=== PATIENT | female | born 1995 | race Two or more races ===

== ENCOUNTER 2024-06-19 15:26 | Inpatient (IN) | payer OTHER ==
[~2024-06-19] VITALS: Ht 149.9 cm; Wt 60.8 kg
[2024-06-19] MEDS ORDERED: MAGNESIUM SULFATE IN WATER 4 GM/100 ML PIGGYBACK IV ONE (15:32)
[2024-06-19] MEDS ORDERED: AMPICILLIN SODIUM 2,000 MG VIAL ONE (15:32)
[2024-06-19] MEDS ORDERED: MAGNESIUM SULFATE IN WATER 0.04 GM/ML IV.SOLN IV ONE (15:32)
[2024-06-19] MEDS ORDERED: BETAMETHASONE ACETATE,SOD PHOS 30 MG/5 ML ML ONE (15:32)
[2024-06-19 15:46] VITALS: BP 121/82
[2024-06-19] MEDS ORDERED: BETAMETHASONE ACETATE,SOD PHOS 30 MG/5 ML ML IM STA (16:20)
[2024-06-19] MEDS ORDERED: AMPICILLIN SODIUM 2,000 MG VIAL IV ONE (16:30)
[2024-06-19] MEDS ORDERED: MAGNESIUM SULFATE IN WATER 500 ML IV SCH (16:30)
[2024-06-19] MEDS ORDERED: ACETAMINOPHEN 325 MG TABLET PO PRN (16:30)
[2024-06-19] MEDS ORDERED: RINGERS SOLUTION,LACTATED 1,000 ML IV SCH (16:30)
[2024-06-19] MEDS ORDERED: MAGNESIUM SULFATE IN WATER 100 ML IV SCH (16:30)
[2024-06-19 16:41] LABS: HEMATOCRIT 35.1 % (36.0-45.00); HEMOGLOBIN 12.1 g/dL (12.0-15.00); MEAN CELL VOLUME 90.3 fL (80.00-100.00); MEAN CORPUSCULAR HEMOGLOBIN 31.1 pg (27.00-32.0); MEAN CORPUSCULAR HGB CONC 34.4 g/dl (32.0-36.0); PLATELET COUNT 227 K/uL (150-450); RED BLOOD COUNT 3.89 M/uL (4.00-6.00); RED CELL DISTRIBUTION WIDTH 12.6 % (11.5-14.5); URINE APPEARANCE Cloudy; URINE BILIRRUBIN Negative (NEGATIVE); URINE BLOOD Negative; URINE COLOR Yellow; URINE GLUCOSE Negative (NEGATIVE); URINE KETONE 15 (NEGATIVE); URINE LEUKOCYTE Trace; URINE NITRATE Negative; URINE PROTEIN Negative (NEGATIVE); URINE UROBILINOGEN 0.2 E.U./dl
[2024-06-19 16:45] LABS: URINE BACTERIA 583.7 uL (0.0-1933); URINE EPITHELIAL CELLS 58.5 uL (0.0-38.8)
[2024-06-19 16:52] LABS: URINE RBC 1.6 uL (0.0-20.8)
[2024-06-19] MEDS ORDERED: PRENATAL TABLE1 EAC4 PO (16:58)
[2024-06-19 17:05] LABS: INR 0.94; PARTIAL THROMBOPLASTIN TIME 27.3 SECONDS (22.0-34.0); PROTHROMBIN TIME 10.3 SECONDS (9.0-11.5)
[2024-06-19 17:11] LABS: ALBUMIN 2.9 gm/dL (3.4-5.0); BILIRUBIN TOTAL 0.65 mg/dL (0.3-1.2); CALCIUM 9.2 mg/dL (8.5-10.1); CREATININE SERUM 0.54 mg/dL (0.55-1.02); GFR 134.43; GLOBULINA 4.2 G/DL (2.4-3.5); POTASSIUM 3.91 mEq/L (3.5-5.1); TOTAL PROTEIN 7.1 gm/dL (6.4-8.2)
[2024-06-19 20:00] VITALS: BP 118/81
[2024-06-19] MEDS ORDERED: AMPICILLIN SODIUM 1,000 MG VIAL IV SCH (20:00)
[2024-06-19 23:15] VITALS: BP 116/75
[2024-06-20 03:02] VITALS: BP 105/63
[2024-06-20 06:06] VITALS: BP 115/63; O2SAT 97
[2024-06-20 11:40] VITALS: BP 112/69; O2SAT 98
[2024-06-20 15:30] VITALS: BP 116/79
[2024-06-20] MEDS ORDERED: BETAMETHASONE ACETATE,SOD PHOS 30 MG/5 ML ML IM NR (16:00)
[2024-06-20 19:26] VITALS: BP 115/77
[2024-06-20] MEDS ORDERED: DOCUSATE CALCIUM 240 MG CAPSULE PO SCH ×2 (21:00→21:10)
[2024-06-20] MEDS ORDERED: DOCUSATE SODIUM 100MG CAP PO SCH (22:15)
[2024-06-20 23:13] VITALS: BP 115/65
[2024-06-21] MEDS ORDERED: DOCUSATE CALCIUM 240 MG CAPSULE ONE (01:12)
[2024-06-21 03:14] VITALS: BP 117/60
[2024-06-21 07:26] VITALS: BP 117/69
[2024-06-21 11:18] VITALS: BP 131/83
[2024-06-21 14:30] VITALS: BP 126/82
[2024-06-21 20:00] VITALS: BP 95/58
[2024-06-21] MEDS ORDERED: NIFEDIPINE 30 MG TAB.SA.OSM PO SCH (21:00)
[2024-06-22] VITALS: BP 102/61
[2024-06-22 09:00] VITALS: BP 112/75
[2024-06-22 17:16] VITALS: BP 110/71
[2024-06-23 00:21] VITALS: BP 103/67
[2024-06-23 08:00] VITALS: BP 120/80
[2024-06-23] MEDS ORDERED: ENOXAPARIN SODIUM 40 MG/0.4 ML SYRINGE SUBCUTANEO SCH (09:05)
[2024-06-23 16:00] VITALS: BP 113/75
[2024-06-23] MEDS ORDERED: TERCONAZOLE 45 GM TUBE VAG SCH ×2 (21:00)
[2024-06-23 23:33] VITALS: BP 115/74
[2024-06-24] MEDS ORDERED: AMPICILLIN SODIUM 1,000 MG VIAL IV SCH (01:31)
[2024-06-24 08:00] VITALS: BP 107/70
[2024-06-24 15:20] VITALS: BP 104/68
== END 2024-06-24 18:34 | disposition designated cancer center or children's hospital (05) | DRG 831 ==
LOC: LDR 15:26 → OB/GYN 06-21 13:11
PROVIDERS: ADMIT Obstetrics & Gynecology; ATTEND Obstetrics & Gynecology
PROC: 4A1HXCZ Monitoring of Products of Conception, Cardiac Rate, External Approach (ICD-10-PCS; principal; 2024-06-19)
PROC: BY4CZZZ Ultrasonography of Second Trimester, Single Fetus (ICD-10-PCS; 2024-06-23)
PROC: BU4CZZZ Ultrasonography of Uterus and Ovaries (ICD-10-PCS; 2024-06-23)
DX: O34.32 Maternal care for cervical incompetence, second trimester (principal); O60.02 Preterm labor without delivery, second trimester; O26.842 Uterine size-date discrepancy, second trimester; O36.8120 Decreased fetal movements, second trimester, not applicable or unspecified; O32.1XX0 Maternal care for breech presentation, not applicable or unspecified; Z3A.27 27 weeks gestation of pregnancy

== ENCOUNTER 2024-08-15 06:23 | Inpatient (IN) | payer OTHER ==
[~2024-08-15] VITALS: Ht 149.9 cm; Wt 1.8 kg
[2024-08-15 06:12] VITALS: BP 120/77
[~2024-08-15 06:23] MED LIST: PRENATAL TABLE1 EAC4 PO
[2024-08-15] MEDS ORDERED: MAGNESIUM SULFATE IN WATER 500 ML IV SCH (07:00)
[2024-08-15] MEDS ORDERED: RINGERS SOLUTION,LACTATED 1,000 ML IV SCH (07:00)
[2024-08-15] MEDS ORDERED: BETAMETHASONE ACETATE,SOD PHOS 30 MG/5 ML ML IM SCH (07:00)
[2024-08-15] MEDS ORDERED: MAGNESIUM SULFATE IN WATER 100 ML IV SCH (07:15)
[2024-08-15] MEDS ORDERED: AMPICILLIN SODIUM 2,000 MG VIAL IV ONE (07:15)
[2024-08-15 07:26] LABS: HEMATOCRIT 35.5 % (36.0-45.00); HEMOGLOBIN 12.2 g/dL (12.0-15.00); MEAN CELL VOLUME 87.5 fL (80.00-100.00); MEAN CORPUSCULAR HGB CONC 34.2 g/dl (32.0-36.0); PLATELET COUNT 211 K/uL (150-450); RED BLOOD COUNT 4.06 M/uL (4.00-6.00)
[2024-08-15 07:40] LABS: PH,URINE 6.5 (5.0-8.0); URINE APPEARANCE Clear; URINE BILIRRUBIN Negative (NEGATIVE); URINE BLOOD Negative; URINE COLOR Yellow; URINE GLUCOSE Negative (NEGATIVE); URINE KETONE Negative (NEGATIVE); URINE LEUKOCYTE Negative; URINE NITRATE Negative; URINE PROTEIN Negative (NEGATIVE); URINE UROBILINOGEN 0.2 E.U./dl
[2024-08-15 07:43] LABS: URINE BACTERIA 564.1 uL (0.0-1933); URINE EPITHELIAL CELLS 50.1 uL (0.0-38.8); URINE WBC 10.6 uL (0.0-23.2)
[2024-08-15 07:52] LABS: URINE RBC 1.7 uL (0.0-20.8)
[2024-08-15] MEDS ORDERED: AMPICILLIN SODIUM 1,000 MG VIAL IV SCH (08:00)
[2024-08-15 08:01] LABS: INR < 0.93; PARTIAL THROMBOPLASTIN TIME 27.3 SECONDS (22.0-34.0); PROTHROMBIN TIME 10.1 SECONDS (9.0-11.5)
[2024-08-15 08:35] VITALS: BP 132/81
[2024-08-15 08:44] LABS: ALBUMIN 2.8 gm/dL (3.4-5.0); BILIRUBIN TOTAL 0.92 mg/dL (0.3-1.2); CALCIUM 9.2 mg/dL (8.5-10.1); CREATININE SERUM 0.51 mg/dL (0.55-1.02); GFR 143.59; GLOBULINA 4.3 G/DL (2.4-3.5); POTASSIUM 4.22 mEq/L (3.5-5.1); TOTAL PROTEIN 7.1 gm/dL (6.4-8.2)
[2024-08-15 12:10] VITALS: BP 129/66
[2024-08-15 15:16] VITALS: BP 128/85
[2024-08-15 20:09] VITALS: BP 116/76
[2024-08-15 23:41] VITALS: BP 119/63
[2024-08-16 03:43] VITALS: BP 116/74
[2024-08-16] MEDS ORDERED: BETAMETHASONE ACETATE,SOD PHOS 30 MG/5 ML ML IM SCH (06:30)
[2024-08-16 07:46] VITALS: BP 112/62
[2024-08-16] MEDS ORDERED: PNV,CALCIUM 72/IRON/FOLIC ACID 1 TAB TABLET PO SCH (09:15)
[2024-08-16 11:23] VITALS: BP 116/73
[2024-08-16 15:46] VITALS: BP 108/65
[2024-08-16 17:36] VITALS: BP 143/81
[2024-08-16] MEDS ORDERED: NIFEDIPINE 30 MG TAB.SA.OSM PO SCH (21:00)
[2024-08-17] VITALS (11 sets, daily range): BP systolic 104–134; BP diastolic 61–82
[2024-08-17] MEDS ORDERED: TERCONAZOLE 45 GM TUBE VAG SCH (10:45)
[2024-08-17] MEDS ORDERED: AMPICILLIN SODIUM 1,000 MG VIAL IV SCH (13:00)
[2024-08-17] MEDS ORDERED: OXYTOCIN 1,000 ML IV SCH (15:15)
[2024-08-17] MEDS ORDERED: LIDOCAINE HCL 1% 10ML VIAL IJ ONE (15:15)
[2024-08-17] MEDS ORDERED: CHLORHEXIDINE GLUCONATE 120 ML BOTTLE TOP SCH (15:15)
[2024-08-17] MEDS ORDERED: ERYTHROMYCIN BASE OPHT 1GM EACH TUBE OP ONE (15:15)
[2024-08-17] MEDS ORDERED: OxyCODONE HCL 5 MG TABLET (ROXICODONE) PO SCH (16:00)
[2024-08-17] MEDS ORDERED: ACETAMINOPHEN 500 MG GEL..CAP PO SCH (18:00)
[2024-08-17] MEDS ORDERED: KETOROLAC TROMETHAMINE 10 MG TABLET PO SCH (18:00)
[2024-08-17] MEDS ORDERED: NIFEDIPINE 60 MG TAB.SA.OSM PO SCH (21:00)
[2024-08-18 00:06] VITALS: BP 107/59
[2024-08-18 08:06] VITALS: BP 102/60
[2024-08-18 15:42] VITALS: BP 125/74
[2024-08-18] MEDS ORDERED: TERCONAZOLE 45 GM TUBE VAG SCH (21:00)
[2024-08-19] VITALS: BP 120/67
[2024-08-19 08:44] VITALS: BP 143/75
== END 2024-08-19 10:14 | disposition home or self-care (01) | DRG 805 ==
LOC: LDR 06:23 → OB/GYN 08-16 14:53
PROVIDERS: ADMIT Obstetrics & Gynecology; ATTEND Obstetrics & Gynecology
PROC: 4A1HXCZ Monitoring of Products of Conception, Cardiac Rate, External Approach (ICD-10-PCS; 2024-08-15)
PROC: BY4FZZZ Ultrasonography of Third Trimester, Single Fetus (ICD-10-PCS; 2024-08-15)
PROC: 10E0XZZ Delivery of Products of Conception, External Approach (ICD-10-PCS; principal; 2024-08-17)
PROC: 0KQM0ZZ Repair Perineum Muscle, Open Approach (ICD-10-PCS; 2024-08-17)
PROC: 0W8NXZZ Division of Female Perineum, External Approach (ICD-10-PCS; 2024-08-17)
DX: O70.1 Second degree perineal laceration during delivery (principal); O60.14X0 Preterm labor third trimester with preterm delivery third trimester, not applicable or unspecified; Z37.0 Single live birth; O42.013 Preterm premature rupture of membranes, onset of labor within 24 hours of rupture, third trimester; Z3A.34 34 weeks gestation of pregnancy